=== PATIENT | female | born 1950 | race Caucasian/White ===

== ENCOUNTER 2018-12-13 09:28 | Emergency (ER) | payer OTHER ==
--- NOTE | 2018-12-13 09:56 | EDPHY ---
General Time Seen by Provider: 12/13/18 09:55 Narrative: CLINICAL IMPRESSION: LLL Pneumonia ASSESSMENT/PLAN: Patient is a 68-year-old female with a history of hypertension who presents to the emergency department with runny nose, congestion and cough. Patient is afebrile, in no acute distress and nontoxic appearing. Her vital signs were reviewed and no findings to suggest sepsis. Laboratory studies were obtained including influenze/RSV- negative. CXR with findings suggestive of early LLL pneumonia. There were no findings to suggest significant sinusitis, pharyngitis , meningitis, serious bacterial illness or new onset CHF. The patient was given albuterol neb treatment with improvement of her symptoms. No respiratory distress or hypoxia. She will start doxycycline and inhaler as needed. On repeat exam she is well appearing, comfortable with outpatient management- no indication for admission. She is well established with [facility] and will follow- up next week, conservative return precautions discussed. DIFFERENTIAL DX: Includes but not limited to and in no particular order- pharyngitis, meningitis , pneumonia, CHF ED course: 1045: Chest x-ray reveals possible early left lower lobe pneumonia. CHIEF COMPLAINT: Runny nose, congestion and cough HPI: Patient is a 68-year-old female with a history of hypertension who presents to the emergency department with runny nose, congestion and cough. Patient reports the beginning of November she started to develop some symptoms including sore throat, was seen at urgent care and diagnosed with a virus, she was feeling better however 1 week ago she started to develop a deep cough, recurrent runny nose and congestion. Her sore throat is gone. She reports having a low-grade fever and overall decreased appetite. She feels that her cough is deep and productive. She is a former smoker. No known sick contacts. She denies any headache, neck stiffness, chest pain or shortness of breath. She has had no abdominal pain, nausea or vomiting. She denies any lower extremity swelling. PMH: Hypertension Family History: Not contributory Social History: Former smoker, no alcohol or illicit drug use REVIEW OF SYSTEMS: All other systems negative Constitutional: Decreased appetite, low-grade fever. Eyes: No discharge, vision change ENT: Sore throat, ear congestion. Cardiovascular: No chest pain, no palpitations. Respiratory: Cough. Gastrointestinal: No abdominal pain, no vomiting, diarrhea. Genitourinary: No hematuria, dysuria, flank pain. Musculoskeletal: No back pain, joint swelling, joint pain, myalgias. Skin: No rashes, color change. Neurological: No headache, dizziness, weakness. PHYSICAL EXAM: General Appearance: Tired appearing however no acute distress. HENT: Normocephalic, atraumatic. Bilateral external ears are normal. Bilateral tympanic membranes are normal with pearly yeung reflex. Nares are pink from blowing her nose, mucosa is pink, clear rhinorrhea. Oropharynx is clear, uvula is midline. There is no tonsillar enlargement or exudate. No trismus or stridor. Her phonation is normal. The dentition is normal. Eyes: PERRLA, no acute vision change, nystagmus, swelling, discharge, pain or photosensitivity. Conjunctiva pink, no pallor or injection Neck: Supple, nontender, no lymphadenopathy, no midline pain, FROM, no meningismus. Respiratory: There are no retractions or accessory muscle use. Patient does have bilateral expiratory wheezing at the bases, globally diminished. Cardiac: Regular rate and rhythm, no murmurs or gallops. Gastrointestinal: Abdomen is soft, nontender, bowel sounds normal, no masses/ hernia, no rigidity, guarding or focal peritoneal findings. Neurological: Alert and oriented x 3, CN 2-12 grossly intact, normal sensation and strength Skin: Warm, dry, no rashes, no nodules on palpation. Musculoskeletal: Extremities are symmetrical, full range of motion, no tenderness, deformity, swelling, or erythema. Psychiatric: Mood and affect are normal, there is no agitation. MEDICAL DECISION MAKING: Patient was seen independently. Secondary supervising physician at time of evaluation was Dr. Aguilar, she did not evaluate this patient. Diagnosis: LLL Pneumonia. Summary: See Assessment and Plan for summary of ED visit Clinical lab tests: ordered / reviewed. Independent visualization of images, tracing, or specimens: Yes. Decision to obtain medical records or history from someone other than the patient: No Review / Summarize previous medical records: Yes Discussed patient with another provider: Yes, Dr. Aguilar Patient Progress: Stable, discharge. - History Smoking Status: Former smoker - Objective Vital Signs: Initial Vital Signs Temperature (C) 37.1 C 12/13/18 09:32 Heart Rate 79 12/13/18 09:32 Respiratory Rate 20 12/13/18 09:32 Blood Pressure 172/67 H 12/13/18 09:32 O2 Sat (%) 95 12/13/18 09:32 O2 Delivery Mode Room Air Allergies/Adverse Reactions: Sulfa (Sulfonamide Antibiotics) Allergy (Verified 07/21/10 08:10) Hives Home Medications: Medication Instructions Recorded Albuterol [Proventil Inhaler HFA 1 - 2 puffs IH Q4H #1 mdi 12/13/18 (*)] Doxycycline Hyclate 100 mg PO BID #14 tab 12/13/18 Losartan Potassium 12/13/18 Medications Given: Discontinued Medications Albuterol (Proventil Neb) 3 ml IH EDNOW ONE Stop: 12/13/18 10:13 Last Admin: 12/13/18 10:18 Dose: 3 ml Prednisone (Prednisone) 60 mg PO EDNOW ONE Stop: 12/13/18 10:13 Last Admin: 12/13/18 10:18 Dose: 60 mg Departure - Departure Disposition: Home, Routine, Self-Care Clinical Impression: Pneumonia Condition: Good Instructions: Pneumonia (ED) Additional Instructions: DISCHARGE INSTRUCTIONS FROM YOUR PROVIDER Thank you for visiting our emergency department today. Please keep in mind that discharge from the emergency department does not mean that there is nothing wrong - it simply means that we have not identified an emergency condition that requires further evaluation or treatment in the hospital. You should always plan to follow up with primary care for re-evaluation of your condition in the next 2-3 days. Your chest x-ray showed findings consistent with an early left lower lobe pneumonia. Please take antibiotics as directed. Rest, push non-diuretic, non-caffeinated fluids, consume a healthy diet, all to help support your immune system fight infection. Consider running a coolmist humidifier in the bedroom. Consider warm salt water gargles for sore throat. Consider over the counter saline nasal washes ie: Neilmed sinus rinse, [place] or [place]. Consider over the counter Mucinex for congestion and/or cough as directed. Ibuprofen as directed as needed for fever and/or pain. Take with food. Stop if it upsets your stomach. Do not exceed 2400 mg in 24 hours. Tylenol as directed as needed for fever and/or pain. Do not exceed 4000 mg in 24 hours. As discussed, in the setting of a viral illness, you may develop a secondary bacterial infection, requiring an antibiotic. Watch for new or changing symptoms ie: new ear pain or drainage, increasing cough, shortness of breath, high fever, or any other concerning symptoms. Schedule a follow-up appointment with your primary care physician in the next 2- 3 days for re-evaluation, sooner for any new concerns. Return for high fever, shaking chills, severe headache, facial redness or swelling, drainage from your ears, difficulty breathing or swallowing, throat tightness, drooling, change in voice, inability to open your mouth normally, severe neck pain, neck stiffness, shortness of breath, wheezing, noisy breathing , coughing up blood, chest pain, vomiting, diarrhea, bloody stools, decreased urine output or other concerns for dehydration, bloody urine, rash, dizziness, weakness, fainting, or for any other new, worsening or worrisome symptoms. People present with illnesses and injuries in different ways, and it is always possible that we have missed something. Again, thank you for choosing our emergency department. We hope that you feel better. Referrals: [facility] ,. [Primary Care Provider] - 2-3 days without fail Prescriptions: Albuterol [Proventil Inhaler HFA (*)] 1 - 2 puffs IH Q4H #1 mdi Doxycycline Hyclate 100 mg PO BID #14 tab
[2018-12-13] MEDS ORDERED: ALBUTEROL 3 ML DEYVIAL IH ONE (10:12)
[2018-12-13] MEDS ORDERED: predniSONE 20 MG TAB PO ONE (10:12)
[2018-12-13 11:28] VITALS: BP 156/67
== END 2018-12-13 11:24 | disposition home or self-care (01) ==
DX: J18.9 Pneumonia, unspecified organism (principal); I10 Essential (primary) hypertension
CPT/HCPCS: J7512; J7613